=== PATIENT | female | born 1995 | race Caucasian/White ===

== ENCOUNTER 2021-02-27 02:11 | Emergency (ER) | payer OTHER ==
[2021-02-27] MEDS ORDERED: SILVADENE20 GM TOP (04:04)
[2021-02-27] MEDS ORDERED: NORCO 5-325 TA1 EACH PO (04:08)
== END 2021-02-27 04:26 | disposition home or self-care (01) ==
LOC: FER 02:11
DX: T21.25XA Burn of second degree of buttock, initial encounter (principal); S61.512A Laceration without foreign body of left wrist, initial encounter; F17.200 Nicotine dependence, unspecified, uncomplicated; Z23 Encounter for immunization; Z88.5 Allergy status to narcotic agent; W01.198A Fall on same level from slipping, tripping and stumbling with subsequent striking against other object, initial encounter; X08.8XXA Exposure to other specified smoke, fire and flames, initial encounter; Y92.830 Public park as the place of occurrence of the external cause
CPT/HCPCS: 90471; 90714; 96374; J1885